=== PATIENT | male | born 1955 | race Caucasian/White ===

== ENCOUNTER 2019-07-13 11:16 | Inpatient (IN) ==
[2019-07-13] MEDS: NS 1,000 ML IV SCH (15:10)
[2019-07-13] MEDS: DILAUDID IV PRN ×2 (15:12→20:34)
--- NOTE | 2019-07-13 15:18 | Diag Imaging Result Doc PS360 ---
EXAM: CHEST-2 VIEWS HISTORY: SOB TECHNIQUE: Chest two views COMPARISON: None. FINDINGS: The lungs are well expanded. The heart is not enlarged. The vessels are not distended. There are no infiltrates. No pleural effusions. IMPRESSION: No acute abnormality. Electronically signed by Armand Riggins 07/13/2019 3:16 PM
--- NOTE | 2019-07-13 21:40 | Diag Imaging Result Doc PS360 ---
EXAM: CT THORAX W/WO CONTRAST HISTORY: History of renal mass, pulmonary nodule on CT A/P TECHNIQUE: Emergency CT chest with and without contrast COMPARISON: None. FINDINGS: No pleural effusions. Heart is enlarged. No enlarged lymph nodes. No thoracic aortic aneurysm or dissection. No pneumonia. No bronchiectasis. 6 mm nodule posteriorly in the right lower lobe. No other lung nodules identified. Scattered granuloma. IMPRESSION: Tiny solitary lung nodule This exam was performed using automated exposure control, adjustment of mA or kV according to patient size, and/or use of iterative reconstruction technique. Electronically signed by Armand Riggins 07/13/2019 9:38 PM
--- NOTE | 2019-07-13 22:22 | CONSULTATION ---
DATE OF CONSULTATION: 07/13/2019 CHIEF COMPLAINT: Right renal mass. HISTORY OF PRESENT ILLNESS: Mr. Waldron is a 63-year-old, with history of hypertension, hyperlipidemia, GERD who presents in consultation for a right renal mass. The patient has been having right lower extremity pain in his hip and lower leg. The patient has undergone prior MRI in Dr. Winters's office which was negative, and underwent a CT of abdomen and pelvis on Saturday when he was found to have gross hematuria. The patient has voided reddish urine several times on , but none since then. He denies any clot passage or difficulty emptying his bladder. A CT of the abdomen and pelvis was obtained which showed a large right renal mass, measuring 9 x 8 cm, involving the lower pole of the right kidney. The patient was admitted from home by Dr. Winters and Urology is consulted for further recommendations. The patient states he has seen Dr. Loo in the past. He denies any dysuria or hematuria today. Denies any urgency or frequency. Occasionally he has nocturia 1 time a night. The patient feels that he empties his bladder to completion. 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 He states he has a family history of kidney disease with his mother being diagnosed with kidney dysfunction due to chronic use of laxatives. The patient is a nonsmoker. Denies any exposures to chemicals. The patient denies any flank or abdominal pain. He states that he does have some pain in the right lower leg, most prominent when he bends his leg in flexion. 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 Denies any weight gain or weight loss. PAST SURGICAL HISTORY: Laparoscopic cholecystectomy. PAST MEDICAL HISTORY: 1. Hypertension. 2. Hyperlipidemia. 3. Gastroesophageal Reflux HOME MEDICATIONS: 1. Carvedilol. 2. Enalapril. 3. Esomeprazole. 4. Ezetimibe. 5. Lasix. 6. Losartan/hydrochlorothiazide. 7. Nifedipine XR. 8. Potassium chloride. ALLERGIES: None. FAMILY HISTORY: History of kidney dysfunction due to chronic laxative use by his mother. No family history of malignancy. SOCIAL HISTORY: Denies alcohol, tobacco, or illicit drug use. PHYSICAL EXAMINATION: Vital Signs: Temperature 98.0 degrees, heart rate 57, blood pressure 136/66, oxygen saturation 97% on room air. General: No acute distress. Resting in bed, alert and oriented x3. HEENT: Normocephalic, atraumatic. Pupils equal, round, and reactive to light. NECK: Trachea midline with no palpable masses or deformity. Cardiovascular: Regular rate and rhythm. No evidence of lower extremity edema. Respiratory: Good respiratory effort without audible wheezing or rales. Abdomen: Soft, nontender, and nondistended. No palpable masses or hepatosplenomegaly. : No suprapubic tenderness. No CVA tenderness. Normal phallus with orthotopic meatus. Bilateral testicles palpated without masses. No evidence of hydrocele or varicocele. Musculoskeletal: Some tenderness to palpation of the right hip and right lower leg. Neurologic: Gross motor and sensory intact. Moving all extremities. Skin: No obvious skin lesions or rashes. LABS: Creatinine 1.0, BUN 15. IMAGING: CT abdomen/pelvis from 07/10/2019: Images reviewed, which showed an 8.4 x 9.7 cm right lower pole mass that is very heterogeneic and enhances on CT scan. Irregular borders are present. 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 Bilateral renal cysts are visualized with several large cysts seen in each kidney. Right costophrenic nodule measuring 6 mm. ASSESSMENT AND PLAN: Mr. Waldron is a 63-year-old who presents in consultation regarding a right renal mass. The patient was admitted to the hospital after he was found to have blood in his urine several times at home over the past several days. He states his urine is clear now. CT abdomen/pelvis was performed on Saturday, which showed a large mass within the right kidney, measuring 8.4 x 9.7 cm in size. The patient's major complaint is regarding right lower extremity pain, most prominent within the hip and right calf. 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 I think this could be related to the tumor itself; however, I recommend obtaining a bone scan as well as a CT of the chest for staging. I talked extensively with the patient and his today regarding his new diagnosis of a renal mass, and the high probability that this is renal cell carcinoma. The patient is having some blood in his urine. Reviewing imaging, it is a very large mass that likely was not amenable to partial nephrectomy. The patient has a consult in place for Hematology Oncology discussion. I would recommend discussing with them regarding management with neoadjuvant PD1 medications as well as tyrosine kinase inhibitors. I think on his current CT scan there is no obvious metastatic lesion. Would obtain a bone scan and CT of the chest. If these are negative, would proceed with surgical resection of the right kidney. The patient's renal function seems to be relatively stable with creatinine of 1.0. We will obtain morning labs with a CBC and a CMP. We will continue to monitor from a urologic standpoint. Please call with questions or concerns. cc: MD Quincy Obregon MD MTDNayeli
[2019-07-14] MEDS: DILAUDID IV PRN ×5 (02:57→20:47)
[2019-07-14] MEDS: PRILOSEC PO SCH (06:20)
[2019-07-14] MEDS: NS 1,000 ML IV SCH ×3 (06:20→20:18)
[2019-07-14 07:01] LABS: HEMATOCRIT 41.4 % (42.0-52.0); HEMOGLOBIN 14.2 g/dL (14.0-18.0); MCH 30.5 PG (27-31); MCHC 34.3 g/dL (33-37); MCV 88.8 FL (81-99); MPV 9.5 FL (7.4-10.4); RBC 4.66 XMIL (4.7-6.1); RDW 13.5 % (11.5-14.5); WBC 6.82 X1000 (4.8-10.8)
--- NOTE | 2019-07-14 07:15 | HISTORY AND PHYSICAL ---
CHIEF COMPLAINT: Intractable dull pain on the right side, going to the leg for the last couple of months. HISTORY OF PRESENT ILLNESS: He is a 63-year-old, pleasant, white male, who basically was evaluated in my office last time 4 weeks ago with the above pain. Plain x-rays were negative. Outpatient MRI open did not show any lesions, other than arthritic changes. In the meantime, he started having hematuria, seen in my office on Saturday. Ultrasound shows a large lower pole mass, which is corroborated by CT on Saturday. The patient was not able to ambulate, in a lot of pain, admitted to the hospital for pain control and further workup. Dr. Loo has been consulted. PAST MEDICAL HISTORY: Metabolic syndrome, acid reflux disease, hyperlipidemia, hypertension, hyperuricemia, slightly elevated PSA of 4.7. PAST SURGICAL HISTORY: Cholecystectomy. MEDICINES: In my office: Coreg 25 p.o. b.i.d., Flexeril 10 mg once daily, Lasix 40 mg daily, potassium 20 mEq daily, Hyzaar 50/12.5 daily, Nexium 40 mg daily, Procardia XL 30 mg daily, Vasotec 20 mg b.i.d., Zetia 10 daily, sulindac as needed. ALLERGIES: Not known. 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 No alcohol. No drug abuse. FAMILY HISTORY: Father at the age of 76 from PSP. Mom of kidney failure at 76. HEALTH MAINTENANCE: Last physical in 05/2019. Colonoscopy by Dr. Cagle. REVIEW OF SYSTEMS: HEENT: No headache. No vision problem. No earache. No sore throat. Neck: No goiter. No lymphadenopathy. No bruit. Cardiopulmonary: No chest pain, shortness of breath, PND, orthopnea. GI: No nausea, vomiting, abdominal pain, bleeding per rectum. : No BPH symptoms, other than hematuria starting on Saturday. Extremities: No swelling of legs. Right sciatica pain. No weakness. Neurologic: No focal symptoms or weakness. PHYSICAL EXAMINATION: VITAL SIGNS: Temperature is 98 degrees, pulse is 57, blood pressure is stable, saturating 97% on room air. HEENT: Atraumatic, normocephalic. Pupils equal, reactive to light. TMs are normal. Nose and throat are within normal limits. NECK: Supple. No lymphadenopathy. No goiter. CHEST: Bilateral air entry. HEART: Heart sounds are regular. ABDOMEN: Belly is soft, nontender. Good bowel sounds. NEUROLOGIC: Straight leg raise test is negative. No obvious deficits. INVESTIGATIONS: In my office, SMA-7: Creatinine is 1.2, potassium 3.3. CBC: White cell count 4.3, hematocrit 45, platelets 194,000. Uric acid 9.5. Urinalysis shows 3+ blood. Hemoglobin A1c 5.5. Liver function tests are normal. Lipid profile: Cholesterol 119, LDL 60. PSA 4.7. Thyroid function tests were normal. B12 of 416. Chest x-ray: No acute abnormality. CT scan of the abdomen and pelvis: Large suspicious mass in the right kidney lower pole, and a tiny 6 mm nodule on the right CP angle. Bilateral renal cysts. ASSESSMENT AND PLAN: A 63-year-old white gentleman with: 1. Hematuria due to large mass in the lower pole of the right kidney, unable to control the pain. Plan is intravenous Dilaudid, intravenous fluids. Urology consult with Dr. Loo, as well as Dr. De La Torre, and Dr. Rasmussen has seen the patient, ordered a bone scan and CT of the chest. 2. Hypertension. Multiple medication by Dr. Wisdom in [place]. Will hold the medicines for the time being. 3. Slightly elevated PSA at 4.7. 4. Will also get the MRI of the lumbar spine from the open MRI. Will review the reports, and will coordinate the care with consultants, and plan for nephrectomy, and continue on Nexium for gastrointestinal prophylaxis, Antithrombotic prophylaxis with thrombotic stockings and early ambulation, and will follow up. cc: Quincy Winters MD
[2019-07-14 07:28] LABS: AGAP 10; ALB/GLOB RATIO 1.5; ALBUMIN 3.9 g/dL (3.5-5.0); ALKALINE PHOSPHATASE 76 U/L (32-122); BUN 12 mg/dL (8-22); CALCIUM 8.6 mg/dL (8.8-10.2); CHLORIDE 105 mmol/L (98-107); COSMO 283; CREATININE 0.9 mg/dL (0.7-1.2); ESTIMATED GFR > 60; GLUCOSE 104 mg/dL (70-104); GOT 22 U/L (10-34); GPT 26 U/L (10-44); POTASSIUM 3.4 mmol/L (3.5-5.1); SODIUM 142 mmol/L (136-145); TCO2 27 mmol/L (25-35); TOTAL BILIRUBIN 1.51 mg/dL (0.20-1.00); TOTAL PROTEIN 6.5 g/dL (6.3-8.3)
--- NOTE | 2019-07-14 12:59 | Diag Imaging Result Doc PS360 ---
BONE SCAN, TOTAL BODY - 07/13/2019 INDICATION: History of right lower extremity and bony pain TECHNIQUE: 29.1 mCi of MDP was administered COMPARISON: None FINDINGS: There is normal localization of the radiotracer. No abnormal skeletal or soft tissue uptake. IMPRESSION: Negative exam. Electronically signed by Ulices Chavez 07/14/2019 12:57 PM
[2019-07-14] MEDS: COREG PO SCH (20:20)
[2019-07-14] MEDS: ADALAT CC PO SCH (20:20)
--- NOTE | 2019-07-14 21:10 | PROGRESS NOTE ---
DATE: 07/14/2019 SUBJECTIVE: The patient's pain is coming back. Continues to have Dilaudid, and asked the patient to ambulate. Workup is in progress. Appreciate Urology consult. REVIEW OF SYSTEMS: Intractable back pain. Family brought the MRI of lumbar spine. We will review with the radiologist. OBJECTIVE: On examination, temperature is 98 degrees. Vital signs are stable. HEENT exam within normal limits. Neck is supple. Chest is clear. Heart sounds are regular. Belly is soft, nontender. DIAGNOSTIC DATA: Bone scan is negative. Chest CT: A 6 mm nodule. ASSESSMENT AND PLAN: 1. Large right renal mass. Waiting for nephrectomy. 2. Staging is done. So far no evidence of metastatic disease PET scan is not helpful as per Dr. De La Torre. 3. We will review the MRI of lumbar spine, which is negative for metastatic disease. 4. Hypertension. Slowly restart on Coreg and nifedipine. 5. Hematuria has stopped. 6. Appreciated Urology and Dr. De La Torre consult. We will follow up. Waiting for nephrectomy based on the Urology schedule. Continue intravenous Dilaudid for pain control. Follow up. cc: Quincy Winters MD MTDD
[2019-07-15] MEDS: DILAUDID IV PRN ×8 (01:09→23:39)
[2019-07-15] MEDS: PRILOSEC PO SCH (06:03)
[2019-07-15] MEDS: NS 1,000 ML IV SCH ×2 (07:22→19:46)
[2019-07-15] MEDS: ADALAT CC PO SCH (09:03)
[2019-07-15] MEDS: COREG PO SCH ×3 (09:03→23:03)
--- NOTE | 2019-07-15 12:45 | HEMO/ONC CONSULTATION ---
DATE: 07/15/2019 REASON FOR CONSULTATION: Large right kidney mass. HISTORY OF PRESENT ILLNESS: This is a 63-year-old, male who has been recently having a significant amount of pain to his right buttock/sciatic area that is radiating to his right leg. He got to the point where he was not able to ambulate and in a lot of pain. Dr. Winters performed x- rays and MRI, which were negative. The patient began having hematuria. An ultrasound was ordered which showed a large lower pole right kidney mass. A CT of his abdomen and pelvis showed an 8.4 x 9.7 cm mass at the lower pole of the right kidney. It is suspected that the mass is probably affecting his psoas muscle which is causing significant pain to the right lower side of his buttock. A bone scan was performed which was negative for metastasis. PAST MEDICAL HISTORY: Metabolic syndrome, acid reflux disease, hyperlipidemia, hypertension, hyperuricemia, slightly elevated PSA of 4.7. PAST SURGICAL HISTORY: Cholecystectomy. HOME MEDICATIONS: Coreg, Flexeril, Lasix, potassium, Hyzaar, Nexium, Procardia XL, Vasotec, Zetia, and Sulindac. ALLERGIES: No known allergies. SOCIAL HISTORY: The patient denies smoking, alcohol, or illicit drug use. REVIEW OF SYSTEMS: The patient complains of right sciatic pain and hematuria. Review of systems is otherwise negative. VITAL SIGNS: Temperature 98.9 degrees, pulse rate 57, respiratory rate 14, blood pressure 137/62, O2 saturation 96% on room air. He is in 8/10 right hip and thigh pain. PHYSICAL EXAMINATION: General: This is an obese male in no acute distress. He has a BMI of 37. HEENT: Sclerae are anicteric. PERRLA. Oral mucosa is normal. Cardiovascular: Normal S1, S2. Heart rate and rhythm regular. Respiratory: Lung sounds are clear to auscultation. Normal respiratory effort. Abdomen: Protuberant, soft, and nontender. Neurological: No focal motor deficits noted. Alert, awake, alert, and oriented x3. Able to move all extremities at will. LABORATORY: No labs were drawn today. Significant values from yesterday's lab work include total bilirubin at 1.51. RADIOLOGY: Chest x-ray was negative. Chest CT shows a tiny solitary lung nodule in the right lower lobe. A bone scan was negative. ASSESSMENT AND PLAN: 1. Large right kidney mass. The patient is stable at this time except for pain. We will await a nephrectomy per urology, according to their schedule. We will follow up with the patient in the office for further management. 2. Small lung nodule: Too small to be picked up by PET. Will need to monitor with future scans. Dictated by CARMELINA Ray for Conrado De La Torre MD cc: MD Quincy Berkowitz MD MTDD
--- NOTE | 2019-07-15 19:30 | PROGRESS NOTE ---
DATE: 07/15/2019 SUBJECTIVE: No acute events overnight. The patient has undergone prior CT chest and bone scan, which were both negative for metastatic lesions. The patient had a small pulmonary nodule on the right side, measuring 6 mm. The patient has been seen by Hematology/Oncology. The patient continues to have some lower extremity pain, most prominent within the right lower extremity. He states it has been well controlled with his medications. OBJECTIVE: Vital Signs: Temperature 98.6, heart rate 60, blood pressure 122/61, oxygen saturation 95% on room air. General: No acute distress. Resting comfortably in bed. Alert and oriented x3. Respiratory: Good respiratory effort without audible wheezing or rales. Abdomen: Soft, nontender, and nondistended. No palpable masses or hepatosplenomegaly. : No suprapubic tenderness. No CVA tenderness. Musculoskeletal: The patient has some tenderness to palpation of the right lower extremity with no obvious deformities. LABS: 07/14/2019: White blood cell count 6.8, hemoglobin 14.2, hematocrit 41.4, platelets 194,000. Sodium 142, potassium 3.4, chloride 105, bicarb 27, BUN 12, creatinine 0.9, glucose 104, calcium 8.6, bilirubin 1.5. IMAGIN. Bone scan showed no evidence of metastatic lesions. 2. Chest CT scan showed a small right pulmonary nodule in the posterior right lower lobe. No other lesions were seen. ASSESSMENT AND PLAN: Mr. Waldron is a 62-year-old who presented in consult regarding a right renal mass. The patient continues to have some right lower extremity pain which seems to be relatively well controlled on oral pain medication. The patient denies any hematuria since admission. The patient has undergone bone scan and CT scan of the chest, which were both normal with a small solitary nodule on the right lower lobe. The patient currently is scheduled to have a robotic radical nephrectomy by Dr. Loo on Saturday of next week. Would recommend medical optimization in preparation for surgery. The patient seems to have good pain control at this time. It may be beneficial for him to go home and recuperate prior to his surgery next week. Discussed this with the patient this morning. Will continue to monitor from a urologic standpoint. Please call with questions or concerns. cc: MD Quincy Obregon MD MTDD
[2019-07-15] MEDS: ULTRACET 37.5MG/325MG PO PRN (19:43)
--- NOTE | 2019-07-15 21:32 | PROGRESS NOTE ---
DATE: 07/15/2019 SUBJECTIVE: The patient is in a lot of pain, not able to control on IV Dilaudid, and appreciated Dr. Loo' and Dr. Rasmussen's input, as well as Dr. De La Torre. No hematuria other than pain. PHYSICAL EXAMINATION: Vital Signs: Temperature is 98.3, pulse 60, blood pressure 140/67, 98% on room air. HEENT: Within normal limits. Neck: Supple. No lymphadenopathy. Chest: Bilateral air entry. Heart: Sounds are regular. Abdomen: Belly is soft, nontender. Neurologic: No obvious deficits. INVESTIGATIONS: 1. Intractable right-sided back pain, sciatica. Neurological exam is stable. We will start on Ultracet 1 tablet every 6 hours. Continue Dilaudid. 2. Out of the bed. 3. No hematuria, and waiting for robotically assisted radical nephrectomy on Saturday. 4. Will review the MRA of lumbar spine. So far, no evidence of metastatic disease, and the pain is controlled. Will discharge on oral pain medicines. Will readmit either on Saturday afternoon or Saturday for upcoming robotic assisted nephrectomy. 5. I appreciated consultants. Will coordinate the care. LEVEL OF DOCUMENTATION: 25 minutes. cc: Quincy Winters MD
[2019-07-16] MEDS: DILAUDID IV PRN (01:41)
[2019-07-16] MEDS: ULTRACET 37.5MG/325MG PO PRN (01:41)
[2019-07-16] MEDS: ADALAT CC PO SCH (08:34)
[2019-07-16] MEDS: NS 1,000 ML IV SCH (08:34)
[2019-07-16] MEDS: PRILOSEC PO SCH (08:35)
[2019-07-16] MEDS: COREG PO SCH (08:35)
[2019-07-16 08:41] VITALS: BP 142/70
--- NOTE | 2019-07-17 06:25 | DISCHARGE SUMMARY ---
ADMISSION DATE: 07/13/2019 DISCHARGE DATE: 07/16/2019 DISCHARGING DIAGNOSIS: Intermittent hematuria, back pain due to a large renal cell mass on the right side. SECONDARY DIAGNOSES: 1. Metabolic syndrome. 2. Acid reflux disease. 3. Hyperlipidemia. 4. Hypertension. 5. Hyperuricemia. 6. Benign prostatic hypertrophy with elevated PSA 4.7. 7. Right sciatica pain due to L4-L5 disk disease with neuroforaminal stenosis. CONSULTS: 1. Dr. Guzman Loo. 2. Dr. De La Torre. BRIEF HISTORY: Please see the H and P that was done on 07/13/2019. In brief, he is a 63-year-old white male who has been suffering from chronic back pain for the last 6 weeks, going to the right leg, not able to control worsening and further workup revealed of the hematuria, patient was found to have a large 8 cm mass in the lower pole of the right kidney in medical-surgical clinic. He has intermittent hematuria and a lot of back pain. As a result, admitted to the hospital. HOSPITAL COURSE: Patient was found to have a large suspicious renal cell neoplasm, 8 cm. He had outpatient MRI done. It showed no metastatic disease except L4-L5 disk disease with central canal stenosis. He was given IV fluids and IV Dilaudid for pain control. Further workup, bone scan was negative, CT of the chest showed 6 mm nodule in the right lower lobe. He also had a few bouts of bleeding in the urine, that was stopped. Appropriate consult was obtained. It has been unanimously recommended to do the right nephrectomy. Obviously, because of the conflicts of the scheduling, he was scheduled right nephrectomy on coming Saturday by Dr. Loo. LABS: White cell count 6.8, hematocrit 42, platelets 194,000. SMA-7, potassium 3.4. LFTs were normal. DISCHARGE INSTRUCTIONS: The patient was discharged home with the following instructions: Coreg 25 p.o. b.i.d., Nexium 40 daily, Zetia 10 daily, nifedipine 30 daily, potassium 20 mEq daily, losartan hydrochlorothiazide 50/12.5 daily, Ultracet 1 tablet q.6 p.r.n. pain. If it does not control, will use the [place] as needed and will admit on Saturday morning or Saturday evening for radical nephrectomy. cc: MD Conrado Foss MD William E. Hughes, MD
== END 2019-07-16 09:39 | disposition home or self-care (01) | DRG 700 ==
LOC: DIRADM 11:16 → 3N 13:47
PROVIDERS: ADMIT Internal Medicine; ATTEND Internal Medicine

== ENCOUNTER 2019-07-21 15:30 | Inpatient (IN) ==
--- NOTE | 2019-07-21 18:49 | CONSULTATION ---
DATE OF CONSULTATION: 07/21/2019 ATTENDING AND REFERRING PHYSICIAN: Dr. Winters. HISTORY OF PRESENT ILLNESS: This 63-year-old male was having abdominal pain. A CT scan revealed an 8 to 9 cm mass in the right kidney that meets CT criteria for malignancy. He was admitted by his family physician in preparation for laparoscopic robot-assisted right radical nephrectomy. The patient denies any voiding problems. PAST MEDICAL HISTORY: 1. Hypertension. 2. Elevated cholesterol. 3. Gastroesophageal reflux disease. CURRENT MEDICATIONS: Documented on the chart. PAST SURGICAL HISTORY: Cholecystectomy. SOCIAL HISTORY: No tobacco or alcohol use. ALLERGIES: No known drug allergies. REVIEW OF SYSTEMS: He denies any problems with heart disease, diabetes, strokes, seizures, pulmonary, or bowel problems. He has had no hematuria. PHYSICAL EXAMINATION: General: An obese, age apparent, normally developed, white male, oriented in all ways and cooperative. HEENT: Normal for age. Lungs: Clear. Cardiovascular: Regular rate and rhythm. Abdomen: Obese, soft, nontender. No hepatosplenomegaly or masses. Normal bowel sounds. : Normal male. Both testes are down. Scrotal exam is normal. Rectal: Deferred. Extremities: No C, C or E. Neurologic: No focal deficits. LABORATORY EVALUATION: He has a BUN 15, creatinine 1.0. A CT scan is as noted in the HPI. The scan reveals the 8.4 x 9.7 right renal mass. Incidentally noted were bilateral fat containing lesions in the adrenal gland that are myelolipomas. Also noted were renal cysts. IMPRESSION: Large right renal mass. PLAN: Laparoscopic robot-assisted right radical nephrectomy. The planned procedure, benefits versus risks, and possible complications, including, but not limited to, bleeding, infection, not being able to remove all of the cancer, and need for further surgery or treatment was discussed. They seemed to understand and desired to proceed. cc: MD Quincy Philippe MD
[2019-07-21] MEDS ORDERED: ULTRACET 37.5MG/325MG PO PRN (19:10)
[2019-07-21] MEDS ORDERED: NS 1,000 ML IV SCH (19:15)
[2019-07-21] MEDS: NS 1,000 ML IV SCH (20:53)
[2019-07-21] MEDS: COREG PO SCH (20:53)
--- NOTE | 2019-07-21 21:12 | HISTORY AND PHYSICAL ---
CHIEF COMPLAINT: Large right renal mass scheduled for radical nephrectomy in the morning. HISTORY OF PRESENT ILLNESS: He is a 63-year-old pleasant white male who recently had hematuria. 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 He was seen before by Dr. De La Torre and scheduled for right radical nephrectomy tomorrow. PAST MEDICAL HISTORY: Metabolic syndrome, acid reflux disease, hyperlipidemia, hypertension, hyperuricemia, elevated PSA with BPH, PSA of 4.7. Chronic back pain with L4 to L5 disk disease with neuroforaminal stenosis. PAST SURGICAL HISTORY: Cholecystectomy. MEDICATIONS: Coreg 25 p.o. b.i.d. Lasix 40 daily. Ultracet 1 tablet q.6 as needed. Potassium 20 mEq daily. Nifedipine 30 daily. Zetia 10 daily. Nexium 40 daily. ALLERGIES: Not known. 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 No alcohol. No drug abuse. FAMILY HISTORY: Father at 76 from PSP disease. Mom of chronic kidney disease at 76. REVIEW OF SYSTEMS: HEENT: No headache. No vision problem. No earache. No sore throat. Neck: No goiter. No lymphadenopathy. No bruit. Cardiopulmonary: No chest pain, shortness of breath, PND, orthopnea. GI: No nausea, vomiting, abdominal pain. : No history of hematuria, dysuria, hesitancy, frequency. No obstructive symptoms. Musculoskeletal: Back pain better than before, and no weakness in the legs. PHYSICAL EXAMINATION: VITAL SIGNS: Temperature is 97 degrees, pulse 58, blood pressure is stable 5 feet 9, 247 pounds. HEENT: Within normal limits. NECK: Supple. No lymphadenopathy. No goiter. CHEST: Bilateral air entry. HEART: Sounds are regular. No murmur. ABDOMEN: Belly is soft, obese, nontender. Good bowel sounds. NEUROLOGIC: No neurological deficits. INVESTIGATIONS: Pending. ASSESSMENT AND PLAN: 1. A 63-year-old white gentleman admitted to the hospital. Large right renal mass suspicious with hypernephroma. Scheduled for radical nephrectomy by Dr. Loo in the morning and pain control. 2. Continue IV fluids. Follow up on the labs. 3. Reconcile home medicines with Coreg, nifedipine for blood pressure as well as potassium. 4. Pain control with tramadol. 5. Deep venous thrombosis with antithrombotic stockings. 6. Dr. Loo consultation and will follow up . cc: Quincy Winters MD MTDD
--- NOTE | 2019-07-21 21:17 | EKG Report ---
Test Performed on : 07/21/2019 8:43:48 PM Test Reason : chest pain Blood Pressure : / mmHG Vent. Rate : 059 BPM Atrial Rate : 059 BPM P-R Int : 202 ms QRS Dur : 100 ms QT Int : 440 ms P-R-T Axes : 028 005 005 degrees QTc Int : 435 ms Sinus bradycardia. Nonspecific T wave abnormality Abnormal ECG No previous ECGs available Confirmed by Jamison Viera MD ([id number]) on 07/21/2019 11:10:10 PM
[2019-07-21 21:19] LABS: BASO# 0.03 X1000 (0.0-0.2); BASO% 0.4 % (0.0-0.8); EOS# 0.28 X1000 (0.0-0.7); HEMATOCRIT 40.1 % (42.0-52.0); HEMOGLOBIN 13.5 g/dL (14.0-18.0); IMM GRAN# 0.02 X1000 (0.0-0.04); IMM GRAN% 0.3 % (0.0-0.5); LYMPH# 1.63 X1000 (1.2-3.4); LYMPH% 23.1 % (20.5-51.1); MCH 29.9 PG (27-31); MCHC 33.7 g/dL (33-37); MCV 88.7 FL (81-99); MONO# 0.76 X1000 (0.11-0.59); MONO% 10.8 % (1.7-9.3); MPV 9.9 FL (7.4-10.4); NEUT# 4.34 X1000 (1.4-6.5); NEUT% 61.4 % (42.2-75.2); PLT 223 X1000 (130-400); RBC 4.52 XMIL (4.7-6.1); RDW 13.5 % (11.5-14.5); WBC 7.06 X1000 (4.8-10.8)
[2019-07-21 21:24] LABS: INR 1.05; PROTIME 13.9 Seconds (11.0-16.0)
[2019-07-21 21:36] LABS: AGAP 12; BUN 11 mg/dL (8-22); CALCIUM 8.2 mg/dL (8.8-10.2); CHLORIDE 104 mmol/L (98-107); COSMO 280; CREATININE 0.8 mg/dL (0.7-1.2); ESTIMATED GFR > 60; GLUCOSE 123 mg/dL (70-104); POTASSIUM 3.2 mmol/L (3.5-5.1); SODIUM 140 mmol/L (136-145); TCO2 24 mmol/L (25-35)
[2019-07-22] MEDS: NEXIUM PO SCH (06:59)
[2019-07-22] MEDS ORDERED: DIPRIVAN 1% ONE (08:14)
[2019-07-22] MEDS ORDERED: QUELICIN (DOSE) ONE ×2 (08:16→10:17)
[2019-07-22] MEDS ORDERED: FENTANYL ONE (08:17)
[2019-07-22] MEDS ORDERED: LR 1,000 ML ONE (08:45)
[2019-07-22] MEDS ORDERED: SENSORCAINE 0.5%-EPI 1:200,000 ONE (08:45)
[2019-07-22] MEDS ORDERED: ADALAT CC PO SCH (09:00)
[2019-07-22] MEDS ORDERED: NEOSTIGMINE ONE ×2 (09:01→13:31)
[2019-07-22] MEDS ORDERED: KEFZOL 2 GM/D5W 2 GM/50 ML IVPB ONE (09:23)
[2019-07-22] MEDS ORDERED: ATROPINE ONE (10:17)
[2019-07-22 11:22] LABS: URINE SOURCE CATH
[2019-07-22 11:27] LABS: BILIRUBIN URINE NEGATIVE (NEGATIVE); BLOOD URINE SMALL (NEGATIVE); COLOR YELLOW; GLUCOSE URINE NEGATIVE (NEGATIVE); KETONE URINE NEGATIVE (NEGATIVE); LEUKOCYTES URINE NEGATIVE (NEGATIVE); NITRITE URINE NEGATIVE (NEGATIVE); PROTEIN URINE NEGATIVE (NEGATIVE); SP GRAVITY URINE 1.011; TURBIDITY URINE CLEAR (CLEAR); UR EPITHELIAL CELLS <10 /HPF (<10); URINE BACTERIA NEGATIVE /HPF; URINE RBC <10 /HPF (<10); URINE WBC <10 /HPF (<10); UROBILINOGEN URINE NORMAL (NORMAL)
[2019-07-22] MEDS ORDERED: ZOFRAN ONE (13:40)
[2019-07-22] MEDS ORDERED: ROBINUL ONE (13:40)
[2019-07-22] MEDS ORDERED: DECADRON ONE (13:42)
[2019-07-22] MEDS ORDERED: BRIDION ONE ×2 (14:45→14:47)
[2019-07-22] MEDS: COREG PO SCH ×2 (16:11→20:35)
[2019-07-22] MEDS: ADALAT CC PO SCH (16:24)
[2019-07-22] MEDS: POTASSIUM CHLORIDE 20 MEQ/SWI 20 MEQ/100 ML IVPB IV SCH ×2 (16:24→20:27)
[2019-07-22] MEDS: KLOR-CON PO SCH (16:25)
[2019-07-22] MEDS: NS 1,000 ML IV SCH (17:17)
[2019-07-22] MEDS: MORPHINE IV PRN ×3 (17:17→22:47)
[2019-07-22] MEDS: OFIRMEV 1000 MG/ISOTONIC SOLN 1,000 MG/100 ML BOTTLE IV SCH ×2 (18:29→22:38)
[2019-07-22] MEDS: KEFZOL 2 GM/D5W 2 GM/50 ML IVPB IV SCH (18:54)
[2019-07-22] MEDS: OXY IR PO PRN (20:34)
[2019-07-22] MEDS: PERIDEX MT SCH (20:37)
--- NOTE | 2019-07-22 21:50 | PROGRESS NOTE ---
DATE: 07/22/2019 SUBJECTIVE: The patient is going for right nephrectomy by Dr. Loo. No complaints. Pain is adequately controlled. No hematuria. No chest pain. OBJECTIVE: On examination, vitals are stable. HEENT exam within normal limits. Chest is clear. Heart sounds are regular. No neurological deficits. LABORATORY DATA: Potassium 3.2. ASSESSMENT AND PLAN: 1. Hypokalemia. Replace the potassium. 2. Hematuria due to large right renal mass. Waiting for right nephrectomy. 3. We will follow up postoperatively after right nephrectomy. Continue the present treatment. Discussed the plan of care with the family. LEVEL OF DOCUMENTATION: 25 minutes. cc: Quincy Winters MD
--- NOTE | 2019-07-23 00:13 | OPERATIVE NOTE ---
PROCEDURE DATE: 07/22/2019 SURGEON: Guzman Loo MD PREOPERATIVE DIAGNOSES: 1. Large right renal mass. 2. A 4 cm right adrenal myelolipoma. POSTOPERATIVE DIAGNOSES: 1. Large right renal mass. 2. A 4 cm right adrenal myelolipoma. PROCEDURE PERFORMED: 1. Laparoscopic robot-assisted right radical nephrectomy. 2. Adrenalectomy with removal of the large myelolipoma. ANESTHESIA: General endotracheal. FINDINGS: A large right renal mass and at least a 4 cm right adrenal myelolipoma that was underneath the liver. INDICATION FOR PROCEDURE: This 63-year-old male was having abdominal pain. Evaluation with CT scan revealed the large right renal mass, a 4 cm right adrenal myelolipoma and a 2 cm left adrenal myelolipoma. DESCRIPTION OF PROCEDURE: After informed consent was obtained from the patient and him receiving IV antibiotics, he was taken to the main OR, placed in the supine position. General endotracheal anesthesia was achieved. He was then placed with his right side elevated to about 30 degrees. The table was flexed a small amount and he was firmly fixed to the table. When the table was rotated completely to his right, he was in an almost horizontal position. When he was rotated to the left, he achieved flank position. The table was left in the nearly horizontal position. A 16- Beninese Cruz catheter was passed through the patient's urethra, prostate and then the bladder without difficulty. The Cruz was placed to gravity drain. The patient was then prepped and draped in the usual sterile fashion for right flank and abdominal surgery. Pneumoperitoneum was achieved by placing a Veress needle through the umbilicus and the abdomen was inflated to 15 cm of water pressure with CO2. The Veress needle was removed and a horizontal incision was made approximately 10 cm above the umbilicus over to the right because of his obesity. The Visiport was used to place the 12 mm trocar. A camera was then placed through this and robot trocars were placed at the midclavicular line just below the ribcage. That was for the #1 arm. The #2 arm was placed at about the level of the umbilicus in the midclavicular line. The fourth arm was placed just above the right anterior superior iliac spine. The clerical dentist assistant port was placed lateral to the midline just above the umbilicus. After the trocars were placed, the patient was rotated such that his right side was in flank position. The robot was docked. The procedure was started by taking down some adhesions and then the ascending colon was mobilized medially by incising the white line of Toldt. There was significant inflammatory reaction from the large lower pole renal tumor, but the colon was sharply dissected medially. The patient had a previous cholecystectomy and there was inflammation in this area. A 5 mm trocar was placed close to the xiphoid process and a locking grasper was placed through this to act as a liver retractor. The colon was mobilized medially, and again there was significant inflammatory reaction, but the duodenum was visualized and it was able to be reflected medially as well. This exposed the vena cava. There was significant adipose tissue over all important body parts. After the vena cava was visualized, it was dissected down to where the gonadal vein entered the vena cava. The gonadal vein was then dissected on its lateral side to just below the lower pole of the kidney and mass. The psoas muscle was then exposed by dissecting through the large amount of adipose tissue. The ureter was visualized and the fourth arm was used to raise the ureter and lower pole of the kidney off the psoas muscle. This area was then dissected back to the renal vein and the fourth arm was used to keep the kidney on stretch. The renal vein was dissected free of its bed bluntly and encircled with a vessel loop. The renal vein was then retracted cephalad and the renal artery was finally exposed and encircled with a vessel loop. Because the renal artery was directly below the renal vein, a Hem-o-mao clip was placed very proximally on the renal artery. A second one was placed above the first one. The PALLAVI vascular stapler, 2.2 mm autumn, was used to take the renal vein and then a similar vascular load was used to take the renal artery. The kidney was then bluntly and sharply dissected free of its bed, keeping Gerota fascia intact. While dissecting over the upper pole, the large right adrenal myelolipoma was visualized. The plane between the adrenal vein and upper pole kidney was developed and the kidney was completely freed of its bed. The ureter was taken down with a clip and the PK dissector. The kidney was moved out of the way. The adrenal gland with the large myelolipoma was bluntly and sharply dissected free of its bed. This myelolipoma dissected up underneath the liver and it took approximately 1 hour to dissect this completely free. The adrenal vein coming off the posterolateral side of the vena cava was taken down with clips. The right adrenal with the large myelolipoma was placed in an EndoCatch retrieval bag to be brought out of the clerical dentist assistant port. A locking grasper was passed through the clerical dentist assistant port and grasped the renal pelvis. The kidney bed was irrigated and then Surgicel SNoW was placed over the renal pedicle and the bed of the adrenal gland. The robot was undocked and the table was rotated such that the patient was almost supine. The robot trocars were removed. The clerical dentist assistant incision was brought up cephalad with the cutting current of the electrocautery. The abdominal rectus fascia was exposed. The surgeon's finger was passed through the clerical dentist assistant port incision and the abdominal rectus fascia was incised. The Endo Catch retrieval bag was easily removed. The incision was extended such that the surgeon could place his hand in the incision and the grasping forceps was followed down to the renal pelvis, and the kidney was removed. All specimens were passed off the field to Pathology. The abdominal rectus fascia was reapproximated with a running suture of #1 Maxon. The camera port incision fascia was reapproximated with a [id number] suture of 2-0 Vicryl, placed using a UR- 6 needle. The skin incisions were reapproximated with clips. The subcutaneous tissue was placed along the large incision. The skin was also reapproximated with clips. Island dressings were placed. He tolerated the procedure well. He was taken to the recovery room, extubated in good condition. ESTIMATED BLOOD LOSS: 450 mL cc: MD Quincy Philippe MD
[2019-07-23] MEDS: OXY IR PO PRN ×5 (02:01→23:03)
[2019-07-23] MEDS: KEFZOL 2 GM/D5W 2 GM/50 ML IVPB IV SCH ×2 (03:34→10:03)
[2019-07-23] MEDS: MORPHINE IV PRN ×4 (03:34→21:27)
[2019-07-23] MEDS: NS 1,000 ML IV SCH (03:48)
[2019-07-23] MEDS: OFIRMEV 1000 MG/ISOTONIC SOLN 1,000 MG/100 ML BOTTLE IV SCH ×2 (05:15→11:52)
[2019-07-23] MEDS: NEXIUM PO SCH (06:06)
[2019-07-23 06:43] LABS: HEMATOCRIT 37.3 % (42.0-52.0); HEMOGLOBIN 12.7 g/dL (14.0-18.0); MCH 30.8 PG (27-31); MCV 90.3 FL (81-99); RBC 4.13 XMIL (4.7-6.1); RDW 13.7 % (11.5-14.5); WBC 10.14 X1000 (4.8-10.8)
[2019-07-23 07:14] LABS: AGAP 9; BUN 8 mg/dL (8-22); CALCIUM 7.6 mg/dL (8.8-10.2); CHLORIDE 105 mmol/L (98-107); COSMO 275; CREATININE 1.2 mg/dL (0.7-1.2); ESTIMATED GFR > 60; GLUCOSE 117 mg/dL (70-104); SODIUM 138 mmol/L (136-145); TCO2 24 mmol/L (25-35)
[2019-07-23] MEDS: COREG PO SCH ×2 (10:02→20:33)
[2019-07-23] MEDS: KLOR-CON PO SCH (10:02)
[2019-07-23] MEDS: ADALAT CC PO SCH (10:02)
[2019-07-23] MEDS: PERIDEX MT SCH ×2 (10:04→20:33)
--- NOTE | 2019-07-23 20:37 | PROGRESS NOTE ---
DATE: 07/23/2019 SUBJECTIVE: The patient is doing better, postoperative day 1, right nephrectomy. REVIEW OF SYSTEMS: None reported, other than slight pain. PHYSICAL EXAMINATION: Temperature is 98 degrees. Vitals are stable.HEENT: Within normal limits. Neck: Supple. Chest: Clear. Heart sounds are regular. Belly is soft, nontender. INVESTIGATIONS: CBC: White cell count 10, hematocrit 37, platelet 195,000. Sodium 138, potassium 4.0, BUN 8, creatinine 1.2, glucose 117. Urinalysis is clear. ASSESSMENT AND PLAN: 1. Postoperative day 1, right nephrectomy. Doing very well. Discontinue Cruz. 2. Currently on intravenous fluids. Slowly advance the diet as tolerated. 3. Deep vein thrombosis prophylaxis with stockings. Out of the bed today. Continue Nexium. Blood pressure is doing very well with nifedipine and Coreg, and continue to monitor. LEVEL OF DOCUMENTATION: 25 minutes. cc: Quincy Winters MD
[2019-07-24] MEDS: MORPHINE IV PRN (00:52)
[2019-07-24] MEDS: NEXIUM PO SCH (06:30)
[2019-07-24] MEDS: NS 1,000 ML IV SCH ×2 (06:55→15:45)
--- NOTE | 2019-07-24 09:03 | Diag Imaging Result Doc PS360 ---
EXAM: KUB ABDOMEN 07/24/2019 HISTORY: constipation TECHNIQUE: KUB COMMENT: There are multiple skin clips to the right of the midline in the lower mid abdomen. There are also surgical clips in the right upper quadrant. There is gas throughout much of the transverse colon with stool in the ascending colon and rectum. Stomach and small bowel are not distended. There is no evidence of organomegaly or mass. IMPRESSION: Mild constipation/colonic ileus. Electronically signed by Twin Rodriguez 07/24/2019 9:01 AM
[2019-07-24] MEDS: OXY IR PO PRN ×4 (09:25→22:54)
[2019-07-24] MEDS: ADALAT CC PO SCH (09:26)
[2019-07-24] MEDS: KLOR-CON PO SCH (09:26)
[2019-07-24] MEDS: PERIDEX MT SCH ×2 (09:27→22:53)
[2019-07-24] MEDS: COREG PO SCH ×2 (09:27→22:53)
--- NOTE | 2019-07-24 19:48 | PROGRESS NOTE ---
DATE: 07/24/2019 SUBJECTIVE: The patient is developing a rough night with ileus and abdominal distention. No bowel movement, voiding well. PHYSICAL EXAMINATION: Vital Signs: Temperature is 98 degrees vitals are stable. HEENT: Within normal limits. Neck: Supple. No lymphadenopathy. Chest: Bilateral air entry. Heart: Sounds are regular. Abdomen: Belly is soft, distended. INVESTIGATIONS: None reported. ASSESSMENT AND PLAN: Day 2 radical nephrectomy, voiding well, incentive spirometry, out of the bed. KUB showed ileus. Increase the ambulation. Continue present treatment. Discussed with Dr. Toledo. We will get the full pathology report sometime next week. LEVEL OF DOCUMENTATION: 25 minutes. cc: Quincy Winters MD
[2019-07-25] MEDS: OXY IR PO PRN ×5 (03:35→22:27)
[2019-07-25] MEDS: NEXIUM PO SCH ×2 (05:40→07:04)
[2019-07-25] MEDS: NS 1,000 ML IV SCH ×2 (05:42→05:46)
[2019-07-25 07:03] LABS: BASO# 0.01 X1000 (0.0-0.2); BASO% 0.1 % (0.0-0.8); EOS# 0.23 X1000 (0.0-0.7); EOS% 2.7 % (0.0-10.0); HEMATOCRIT 35.9 % (42.0-52.0); HEMOGLOBIN 11.9 g/dL (14.0-18.0); IMM GRAN# 0.02 X1000 (0.0-0.04); IMM GRAN% 0.2 % (0.0-0.5); LYMPH# 0.86 X1000 (1.2-3.4); LYMPH% 10.1 % (20.5-51.1); MCHC 33.1 g/dL (33-37); MCV 90.4 FL (81-99); MONO# 1.06 X1000 (0.11-0.59); MONO% 12.4 % (1.7-9.3); MPV 9.7 FL (7.4-10.4); NEUT# 6.36 X1000 (1.4-6.5); NEUT% 74.5 % (42.2-75.2); PLT 203 X1000 (130-400); RBC 3.97 XMIL (4.7-6.1); RDW 13.5 % (11.5-14.5); WBC 8.54 X1000 (4.8-10.8)
[2019-07-25 07:20] LABS: AGAP 11; BUN 6 mg/dL (8-22); CALCIUM 8.1 mg/dL (8.8-10.2); CHLORIDE 107 mmol/L (98-107); COSMO 279; ESTIMATED GFR > 60; GLUCOSE 100 mg/dL (70-104); POTASSIUM 3.4 mmol/L (3.5-5.1); SODIUM 141 mmol/L (136-145); TCO2 23 mmol/L (25-35)
[2019-07-25] MEDS: COREG PO SCH ×2 (09:05→21:37)
[2019-07-25] MEDS: KLOR-CON PO SCH (09:06)
[2019-07-25] MEDS: ADALAT CC PO SCH (09:06)
[2019-07-25] MEDS: PERIDEX MT SCH ×2 (09:07→21:37)
[2019-07-25] MEDS ORDERED: MIRALAX PO ONE (09:52)
[2019-07-25] MEDS ORDERED: KLOR-CON PO ONE (13:20)
--- NOTE | 2019-07-25 16:19 | PROGRESS NOTE ---
DATE: 07/25/2019 SUBJECTIVE: The patient continues to have ileus and nausea. No other complaints. He is not passing the gas. PHYSICAL EXAMINATION: Vital Signs: Temperature is 97 degrees. Vitals are stable. HEENT: Within normal limits. Neck: Supple. No lymphadenopathy. Chest: Bilateral air entry. Heart: Sounds are regular. Abdomen: Belly is soft and distended. No obvious neurological deficits. INVESTIGATIONS: CBC: White cell count 8.5, hematocrit 35, and platelets 203,000. Sodium 140, potassium 3.4, BUN 6, and creatinine 1.0. KUB with moderate ileus. ASSESSMENT AND PLAN: 1. Postoperative day 3 complicated by mild ileus. Plan is decrease intravenous fluids. MiraLAX. 2. Hypokalemia. Replace the potassium. 3. Hypertension is stable. Continue with thrombotic stockings. Incentive spirometry. If he continues to get better, we will discharge in the morning. LEVEL OF DOCUMENTATION: 25 minutes. cc: Quincy Winters MD
[2019-07-26] MEDS: OXY IR PO PRN ×2 (06:38→11:38)
[2019-07-26] MEDS: NEXIUM PO SCH (06:39)
[2019-07-26 09:35] VITALS: BP 156/78
[2019-07-26] MEDS: COREG PO SCH (10:19)
[2019-07-26] MEDS: ADALAT CC PO SCH (10:20)
[2019-07-26] MEDS: KLOR-CON PO SCH (10:20)
[2019-07-26] MEDS: PERIDEX MT SCH (10:20)
--- NOTE | 2019-07-26 15:24 | DISCHARGE SUMMARY ---
ADMISSION DATE: 07/21/2019 DISCHARGE DATE: 07/26/2019 DISCHARGING DIAGNOSIS: Large right renal mass status post radical nephrectomy. Waiting for staging. SECONDARY DIAGNOSES: 1. Metabolic syndrome. 2. Acid reflux disease. 3. Hyperlipidemia. 4. Hypertension. 5. Hyperuricemia. 6. Elevated PSA 4.7. 7. Chronic back pain due to L4-L5 disk disease with right neuroforaminal stenosis. 8. Hypokalemia. CONSULT: Dr. Masoud Loo. PROCEDURES: 1. Radical right nephrectomy. 2. Removed adrenal gland. BRIEF HISTORY: Please see the H P that was done on 07/21/2019. In brief, he is a 63-year-old pleasant white male who recently had a back pain evaluation, found a large right renal mass arising from lower pole seen by Dr. Loo and Wil. Basically admitted to the hospital for radical nephrectomy. Preop workup was negative. The patient had a successful right radical nephrectomy robotically by Dr. Loo, removed adrenal lipoma. Postoperative course was uneventful except hypokalemia and ileus and no other untoward complications noted. The patient was discharged home in a stable condition. LABS: CBC: White cell count 8.5, hematocrit 35.9, platelets 203,000. Sodium 140, potassium 3.4, chloride 107, BUN 11, creatinine 0.6, glucose 100. DISCHARGE INSTRUCTIONS ARE FOLLOWS: Nexium 40 mg daily. Zebeta 10 daily, nifedipine 30 daily, potassium 20 mEq daily, Lasix 40 daily as needed, Ultracet 1 tablet q. 6 for p.r.n. pain, Coreg 25 mg p.o. b.i.d. and follow up with Dr. Loo on as well as Dr. De La Torre and follow up in my office in 2 weeks. cc: MD Conrado Foss MD William E. Hughes, MD
== END 2019-07-26 12:00 | disposition home or self-care (01) | DRG 657 ==
LOC: 4N → OR 15:30 → OBSVTOIN 15:41 → EDSTATUS 07-22 10:30
PROVIDERS: ADMIT Internal Medicine; ATTEND Internal Medicine

== ENCOUNTER 2019-07-31 19:43 | Inpatient (IN) ==
--- NOTE | 2019-07-31 22:03 | Diag Imaging Result Doc PS360 ---
EXAM: CT ABD/PELVIS W/IV CONT ONLY 07/31/2019 HISTORY: wound dehiscence post op TECHNIQUE: This exam was performed using automated exposure control, adjustment of mA or kV according to patient size, and/or use of iterative reconstruction technique. COMMENT: The current study is compared with the previous examination of 07/10/2019. There is a nodule posteriorly in the right lower lobe which has not changed significantly since the previous study. There is a fluid collection medial and posterior to the right hepatic lobe. The liver is stable in appearance. The spleen is normal in appearance. The fluid collection on the right was not present on the previous study. This partially obscures the adrenal gland. The left adrenal gland is stable in appearance. The pancreas is unremarkable. There has been previous cholecystectomy. There is some fluid in the stomach without significant dilatation. The small bowel and colon are not distended. The aorta is normal in caliber. There is no evidence of significant adenopathy. The appendix is normal in appearance. There is stranding in the fat surrounding the cecum and appendix this was not the case at the time the previous study. There has been right nephrectomy since the previous study. There are apparent cortical cysts in the left kidney. There are air bubbles in the subcutaneous fat and there is apparent ventral dehiscence presumably in an incision. There is a small bowel loop protruding into the defect. Pelvis: There is no evidence of free fluid. The there is a bone island in the proximal left femur. There are degenerative disc changes particularly at L5-S1. No acute bony abnormalities are present. IMPRESSION: Postsurgical changes of right nephrectomy with small hematoma. Anterior abdominal incision dehiscence as described. Electronically signed by Twin Rodriguez 07/31/2019 10:01 PM
[2019-07-31 22:29] LABS: BASO# 0.04 X1000 (0.0-0.2); BASO% 0.4 % (0.0-0.8); EOS# 0.58 X1000 (0.0-0.7); HEMATOCRIT 38.8 % (42.0-52.0); HEMOGLOBIN 12.7 g/dL (14.0-18.0); IMM GRAN# 0.04 X1000 (0.0-0.04); IMM GRAN% 0.4 % (0.0-0.5); LYMPH# 1.33 X1000 (1.2-3.4); LYMPH% 13.9 % (20.5-51.1); MCH 29.3 PG (27-31); MCHC 32.7 g/dL (33-37); MCV 89.4 FL (81-99); MONO# 1.01 X1000 (0.11-0.59); MONO% 10.5 % (1.7-9.3); MPV 9.7 FL (7.4-10.4); NEUT% 68.8 % (42.2-75.2); PLT 355 X1000 (130-400); RBC 4.34 XMIL (4.7-6.1); RDW 13.1 % (11.5-14.5)
[2019-07-31] MEDS ORDERED: ZOSYN 4.5 GM in NS 100 ML IV ONE (22:40)
[2019-07-31] MEDS ORDERED: NS 1,000 ML IV ONE (22:44)
[2019-07-31 22:55] LABS: CALCIUM 8.5 mg/dL (8.8-10.2); CREATININE 1.3 mg/dL (0.7-1.2); POTASSIUM 3.7 mmol/L (3.5-5.1)
--- NOTE | 2019-07-31 23:44 | PROVIDER DOCUMENTATION ---
This chart was entered by Han Smith Scribe, acting as scribe for Rut Ortez MD. HPI-Rash/Wound/ReCheck - General Chief Complaint: Post Op Complaint Stated Complaint: POST-OP COMPLAINT Time Seen by Provider: 07/31/19 21:00 Source: patient, family Allergies/Adverse Reactions: Allergies Allergy/AdvReac Type Severity Reaction Status Date / Time No Known Allergies Allergy Verified 07/31/19 20:06 Home Medications: Home Medication List Medication Instructions Recorded Confirmed Last Taken Type Esomeprazole Magnesium 40 mg PO DAILY 07/13/19 07/31/19 07/21/19 09:00 History 40 mg Ezetimibe 10 mg PO DAILY 07/13/19 07/31/19 07/13/19 History Nifedipine [Nifedipine ER] 30 mg PO DAILY 07/13/19 07/31/19 07/21/19 09:00 History 30 mg Potassium Chloride [Klor-Con M20] 20 mg PO DAILY 07/13/19 07/31/19 07/21/19 09:00 History 20 meq Tramadol/APAP [Ultracet 1 ea PO Q6H PRN PRN #90 tab 07/16/19 07/31/19 07/21/19 11:30 Rx 37.5MG/325Mg] 1 Carvedilol [Coreg] 50 mg PO BID 07/21/19 07/31/19 07/21/19 09:00 History 50 mg Furosemide [Lasix] 40 mg PO DAILY 07/21/19 07/31/19 07/21/19 09:00 History 40 mg - History of Present Illness-Dermatology Nature of Presenting Problem: Pt is a 63 yom who presents to the ED with a CC of post operation complaint. Pt reports he had his right kidney removed nine days ago. Pt reports he had his autumn taken out earlier today. Pt reports while at home he sneezed and states his surgical site opened up. Pt reports this occurred at approximately 1830. Pt reports he has noticed draining from the surgical site recently, no fever, no abdominal pain. There was no draining noted on examination. Location: reports: other (Abdomen) Quality: reports: other (Surgical site opening) Severity: reports: mild Onset/Duration: reports: 1-3 hours ago Timing: reports: still present Context/Associated Symptoms: reports: other Identifiable cause?: Yes Locality of Occurance: Home Similar Symptoms Previously?: Yes Recently seen or treated by another doctor?: Yes - Recheck Treated days ago.: 1 Previous Treatment: laceration repair (Surgical) Symptoms since procedure:: reports: other Review of Systems - Adult - REVIEW OF SYSTEMS - ADULT Constitutional: reports: see HPI Eyes: reports: no symptoms reported Ears, Nose, Mouth & Throat: reports: no symptoms reported Cardiovascular: reports: no symptoms reported Respiratory: reports: no symptoms reported Gastrointestinal: reports: see HPI Genitourinary: reports: no symptoms reported Musculoskeletal: reports: no symptoms reported Integumentary: reports: see HPI Neurological: reports: no symptoms reported Psychiatric: reports: no symptoms reported Endocrine: reports: no symptoms reported Hematologic/Lymphatic: reports: no symptoms reported Allergic/Immunologic: reports: no symptoms reported All Other Systems: Reviewed and Negative Past History - Adult - PAST MEDICAL HISTORY-ADULT Review of Records: reports: Old Records Reviewed, Nursing Assessment Review, Medications Reviewed, Social history reviewed & non-contributory. Major Childhood Illnesses: reports: denies history Cardiovascular: reports: denies history Respiratory: reports: denies history Gastrointestinal: reports: denies history Obstetrical/Gynecological: reports: denies history Genitourinary: reports: cancer (Kidney) Musculoskeletal: reports: denies history Neurological: reports: denies history Endocrine/Immune: reports: denies history Other Conditions: reports: denies history - PRIOR SURGERIES/PROCEDURES Surgical/Procedure History: reports: other (Right kidney removal) - IMMUNIZATION STATUS Childhood Immunizations: See Nurse Assessment Flu Vaccine: See Nurse Assessment - FAMILY HISTORY Family History: reviewed, not pertinent - SOCIAL HISTORY Smoking: denies, non-smoker Substance Use: none/never, denies Alcohol Use Frequency: never Physical Exam-General - PHYSICAL EXAM-ADULT Initial Vital Signs Reviewed: Yes - CONSTITUTIONAL General Appearance: alert, mild distress, obese - EYES Eyes: PERRL/EOMI, pink conjunctivae - HEAD, EARS, NOSE, MOUTH & THROAT HENMT: normocephalic/atraumatic, moist mucous membranes - NECK Neck: non-tender, full range of motion - RESPIRATORY Respiratory: chest non-tender, lungs clear, normal breath sounds - CARDIOVASCULAR Cardiovascular: normal peripheral pulses, regular rate, rhythm, no edema - GASTROINTESTINAL (ABDOMEN) Abdominal Exam: tenderness (From surgical site), other (4 cm anterior abdominal incisional dehicscense with 1 inch deep void in the superior aspect of the wound with visible adipose and ? bowel) - MUSCULOSKELETAL Extremity: normal range of motion, non-tender - SKIN Integumentary: normal color, warm/dry, other - NEUROLOGIC Neurologic: grossly normal, no motor/sensory deficits - PSYCHIATRIC Psych/Mental Status: normal mood/affect, normal thought content, normal thought process, oriented x 3 Progress - PLAN OF CARE/RESULTS Progress/Plan/Lab Results: Vital Signs - 8 hr 07/31/19 19:50 Temperature 98.1 F Pulse Rate 60 Respiratory Rate 17 Blood Pressure 151/80 O2 Sat by Pulse Oximetry 97 Laboratory Results - last 24 hr 07/31/19 07/31/19 21:29 21:29 WBC 9.60 RBC 4.34 L Hgb 12.7 L Hct 38.8 L MCV 89.4 MCH 29.3 MCHC 32.7 L RDW Std Deviation 13.1 Plt Count 355 MPV 9.7 Immature Gran % (Auto) 0.4 Neut % (Auto) 68.8 Lymph % (Auto) 13.9 L Stark % (Auto) 10.5 H Eos % (Auto) 6.0 Baso % (Auto) 0.4 Immature Gran # (Auto) 0.04 Neut # (Auto) 6.60 H Lymph # (Auto) 1.33 Stark # (Auto) 1.01 H Eos # (Auto) 0.58 Baso # (Auto) 0.04 Sodium 139 Potassium 3.7 Chloride 102 Carbon Dioxide 26 Anion Gap 11 BUN 13 Creatinine 1.3 H Estimated GFR/1.73 m2 56 BUN/Creatinine Ratio 10 Glucose 115 H Calculated Osmolality 279 Calcium 8.5 L Orders Category Date Time Status IV Insertion ORDERED Care 07/31/19 21:[address] ABD/PELVIS W/IV CONT ONLY [CT] Stat Exams 07/31/19 21:11 Completed BASIC METABOLIC PANEL [CHEM] Stat Lab 07/31/19 21:29 Completed BLOOD CULTURE [BLDCUL] Stat Lab 07/31/19 23:18 Results CBC WITH DIFF [HEME] Stat Lab 07/31/19 21:29 Completed 0.9% Sodium Chloride Inj [Ns] 1,000 ml Med 07/31/19 22:44 Active IV 999 mls/hr Piperacillin/Tazobactam [Zosyn] 4.5 gm Med 07/31/19 22:40 Discontinued 0.9% Sodium Chloride Inj [Ns] 100 ml IV NOW wound dehiscence with ? visible bowel will further evaluate with CT A/P Result Diagrams: 07/31/19 21:29 07/31/19 21:29 - REASSESSMENT Reassessment #1 Status: improving (feeling well, CT with concern for defect through fascia and protrusion of bowel through defect. Discussed case wtih Dr. Morillo, urologist field installation technician, who will come to see pt in the ED and request pt be covered with zosyn.) Reassessment #2 Status: unchanged (Evaluted by in the ED by Urology and plan to take pt to the OR.) - CT/MRI 1 CT Study: Abdomen, Pelvis Impression: See EMR Report ( EXAM: CT ABD/PELVIS W/IV CONT ONLY 07/31/2019 HISTORY: wound dehiscence post op TECHNIQUE: This exam was performed using automated exposure control, adjustment of mA or kV according to patient size, and/or use of iterative reconstruction technique. COMMENT: The current study is compared with the previous examination of 07/10/2019. There is a nodule posteriorly in the right lower lobe which has not changed significantly since the previous study. There is a fluid collection medial and posterior to the right hepatic lobe. The liver is stable in appearance. The spleen is normal in appearance. The fluid collection on the right was not present on the previous st udy. This partially obscures the adrenal gland. The left adrenal gland is stable in appearance. The pancreas is unremarkable. There has been previous cholecystectomy. There is some fluid in the stomach without significant dilatation. The small bowel and colon are not distended. The aorta is normal in caliber. There is no evidence of significant adenopathy. The appendix is normal in appearance. There is stranding in the fat surrounding the cecum and appendix this was not the case at the time the previous study. There has been right nephrectomy since the previous study. There are apparent cortical cysts in the left kidney. There are air bubbles in the subcutaneous fat and there is apparent ventral dehiscence presumably in an incision. There is a small bowel loop protruding into the defect. Pelvis: There is no evidence of free fluid. The there is a bone island in the proximal left femur. There are degenerative disc changes particularly at L5-S1. No acute bony abnormalities are present. IMPRESSION: Postsurgical changes of right nephrectomy with small hematoma. Anterior abdominal incision dehiscence as described. Electronically signed by Twin Rodriguez 07/31/2019 10:01 PM 07/31/192200 Interpreting Physician: Twin Rodriguez MD Dictated Date/Time: 07/31/197 cc: Rut Ortez MD; Guzman Loo MD) Departure - Departure Date of Disposition Decision: 07/31/19 Time of Disposition Decision: 23:44 DIAGNOSIS: Wound dehiscence, Evisceration of bowel Disposition: ADMITTED INPATIENT 09 Certified Medical Emergency: Emergent Condition: Serious Additional Instructions: ED Follow Up Instructions: You have been treated by a care provider in the Emergency Department. These instructions are being provided to you so you can have an understanding of how to care for yourself upon discharge. Upon discharge from the Emergency Department, you are responsible for making arrangements for follow-up care by a physician of your choice. Take all prescribed medications as directed. Return to the Emergency Department immediately for any new or worsening symptoms. You may call the Physician Referral phone number at [phone] to obtain a list of Physicians who are taking new patients. - Critical Care Note This patient required my direct & personal management of CC.: No Attestation - Physician/ PARVIN Attestation Patient care was provided by Advanced Practice Provider:: No The physician spent face to face time with patient:: Yes Advanced Practice Provider documentation review:: Supervising physician onsite and consulted in the evaluation and care of this patient. The physician did have a face to face encounter with the patient. This chart was documented by the indicated scribe, (Han Smith, Yonyibrenny) and accurately reflects the services I performed and decisions made by me, Rut Ortez MD, as attested by the provider's signature.
[2019-08-01] MEDS ORDERED: DIPRIVAN 1% ONE (00:21)
[2019-08-01] MEDS ORDERED: QUELICIN (DOSE) ONE (00:24)
[2019-08-01] MEDS ORDERED: XYLOCAINE-MPF 2% ONE (00:24)
[2019-08-01] MEDS ORDERED: PEPCID ONE (00:39)
[2019-08-01] MEDS ORDERED: REGLAN ONE (00:39)
--- NOTE | 2019-08-01 00:43 | CONSULTATION ---
DATE OF CONSULTATION: 07/31/2019 REQUESTING PHYSICIAN: Dr. Ortez in the Emergency Department. REASON FOR CONSULTATION: Wound dehiscence. HISTORY OF PRESENT ILLNESS: A 63-year-old male who underwent right robotic-assisted laparoscopic radical nephrectomy on 07/22/[address] Guzman Loo. He did well and was seen in clinic today, at which point his autumn were removed. Steri-Strips were applied over the incision. He reports sneezing or coughing once, which prompted his incision to open. He reports that prior to this he has had drainage for several days that was reddish in appearance. He denied fevers, chills, significant incisional pain. CT scan was obtained in the emergency room, which revealed dehiscent fascia with a loop of bowel protruding into the fascial defect. Urology was consulted. He denies voiding difficulties. Again, he denies significant incisional pain. No fevers, chills, nausea or vomiting. PAST MEDICAL HISTORY: Renal cell carcinoma, hypertension, hyperlipidemia, BPH, GERD, metabolic syndrome, spinal stenosis. PAST SURGICAL HISTORY: Cholecystectomy, right robotic-assisted laparoscopic radical nephrectomy. ALLERGIES: No known drug allergies. MEDICATIONS: Coreg, Lasix, potassium chloride, nifedipine, Zetia, Nexium, Ultram. FAMILY HISTORY: Negative for malignancies. SOCIAL HISTORY: Denies tobacco, alcohol or illicit drug use. REVIEW OF SYSTEMS: Reviewed and 12 systems negative, except for HPI. PHYSICAL EXAMINATION: Vital signs: Temperature 98.1 degrees, Pulse 60, blood pressure 151/80. General: No acute distress. Pleasant male. HEENT: Normocephalic, atraumatic. Cardiovascular: Regular rate and rhythm. Pulmonary: Bilateral breath sounds. Abdomen: Protuberant, nontender to palpation. There is 6 cm fascial defect with mesenteric fat obvious protruding out. No evidence of purulence noted. No evidence of necrosis of tissue seen. Back: No CVA tenderness. Genitourinary: Bladder is nontender to palpation. Normal external male genitalia. Lymphatic: No groin lymphadenopathy. Neurologic: Alert and oriented x3. Psychiatric: Appropriate mood and affect. PERTINENT LABORATORY DATA: White cell count is 10,000, hematocrit 39. Creatinine is 1.3. IMAGES: CT abdomen and pelvis per HPI. ASSESSMENT AND PLAN: A 63-year-old male status post recent nephrectomy who has fascial dehiscence with evisceration. I have discussed with the patient that, given obvious evisceration and visible mesentery and bowel, he would benefit from exploratory laparotomy and primary closure. We discussed the risks of the procedure, including, but not limited to, bleeding, infection, injury to the bowel, injury to adjacent structures, inability to achieve good primary closure, and repeat dehiscences as well as need for additional intervention. He was understanding and wants to proceed. PLAN: To operating room now for exploratory laparotomy and wound closure. cc: Ronald Cervantes MD
[2019-08-01] MEDS ORDERED: DECADRON ONE (00:45)
[2019-08-01] MEDS ORDERED: ZOFRAN ONE (00:45)
--- NOTE | 2019-08-01 01:04 | HISTORY AND PHYSICAL ---
PRIMARY CARE PHYSICIAN: Angelina Winters MD CHIEF COMPLAINT: Wound opening up. HISTORY OF PRESENTING ILLNESS: A 63-year-old male with a history of hypertension, hyperlipidemia, GERD and chronic low back pain, who underwent right radical nephrectomy several days ago. He presents to the emergency department with complaint that the wound is opening up. He was evaluated in the ED. It seems that some of the bowel was also eviscerating. His case was discussed with Urology, who recommended admission for further management. The OR team was called and the patient will go to OR shortly. At the time of my examination, the patient denied any headache, fever, chills, chest pain, shortness of breath or any weight changes, but just complained of right flank region pain. PAST MEDICAL HISTORY: Includes hypertension, hyperlipidemia, GERD, chronic low back pain. PAST SURGICAL HISTORY: Cholecystectomy, right radical nephrectomy. ALLERGIES: No known drug allergies. CURRENT MEDICATIONS: Glucotrol 50 mg p.o. b.i.d., Nexium 40 mg p.o. daily, Lasix 40 mg p.o. daily, nifedipine 30 mg p.o. daily. SOCIAL HISTORY: No history of smoking, alcohol or illicit drug use. FAMILY HISTORY: No history of coronary disease. REVIEW OF SYSTEMS: Fourteen-point review of systems is as in HPI. Other systems negative. PHYSICAL EXAMINATION: GENERAL: Cooperative, friendly male. He is resting comfortably now. VITAL SIGNS: Temperature 98.1 degrees, pulse 60, respirations 17, blood pressure 151/80. HEENT: Atraumatic, normocephalic. Extraocular movements intact. PERRLA. NECK: Supple. CHEST: Clear to auscultation. CARDIOVASCULAR: Regular rate and rhythm. ABDOMEN: Soft. Some mild tenderness around the wound. It seems to be opening, and the dressing is dry and intact. GENITOURINARY: No bladder distention. SKIN: Warm. LABORATORY DATA: WBCs 9.60, hemoglobin 12.7, hematocrit 38.8, platelets 355,000. Sodium 139, potassium 3.7, chloride 102, CO2 is 26, BUN is 13, creatinine is 1.3, glucose 115. DIAGNOSTIC DATA: CT shows anterior abdominal incision dehiscence. ASSESSMENT: A 63-year-old male with a history of hypertension, hyperlipidemia, gastroesophageal reflux disease and chronic low back pain, who underwent right radical nephrectomy. The patient presented to the emergency department with complaint of wound opening up. He was evaluated. It seems that there was wound dehiscence and some of the bowel was noted eviscerating from it. Due to his presenting symptoms, he will require admission for further management. 1. Wound dehiscence with bowel evisceration. 2. Status post right nephrectomy. 3. Hypertension. 4. Gastroesophageal reflux disease. 5. Chronic low back pain. PLAN: 1. We will admit the patient to the medical/surgical floor. 2. Urology was already consulted and the patient will go to OR. 3. We will give the patient adequate pain control. 4. We will hold home medications for now and keep the patient NPO. Continue with gentle hydration and start him on empiric antibiotics. 5. We will put the patient on DVT prophylaxis with SCDs. 6. We will continue to follow and reassess, and make further recommendations based on the patient's clinical course. cc: Elton Crockett MD MTDD
[2019-08-01] MEDS ORDERED: TORADOL ONE (01:18)
[2019-08-01] MEDS ORDERED: FENTANYL ONE (01:30)
[2019-08-01] MEDS ORDERED: MORPHINE ONE (02:00)
[2019-08-01] MEDS ORDERED: PERCOCET-10 ONE (02:10)
[2019-08-01] MEDS ORDERED: ZOFRAN IV PRN (02:34)
[2019-08-01] MEDS ORDERED: MORPHINE IV PRN (02:34)
[2019-08-01] MEDS: NS 1,000 ML IV SCH ×2 (02:51→14:42)
[2019-08-01] MEDS: MORPHINE IV PRN ×3 (04:29→22:33)
[2019-08-01] MEDS: ZOSYN 3.375 GM in NS 50 ML IV SCH ×4 (04:34→22:46)
--- NOTE | 2019-08-01 05:45 | OPERATIVE NOTE ---
PROCEDURE DATE: 08/01/2019 SURGEON: Dr. Ronald Cervantes. PREOPERATIVE DIAGNOSIS: History of recent abdominal surgery, wound dehiscence, evisceration of small bowel. POSTOPERATIVE DIAGNOSIS: History of recent abdominal surgery, wound dehiscence, evisceration of small bowel. PROCEDURE NAME: 1. Exploratory laparotomy. 2. Lysis of small bowel adhesions. 3. Primary wound closure. INDICATIONS: A 63-year-old male who underwent right robotic radical nephrectomy by Dr. Loo on 07/22/2019. He was doing well and was seen in clinic on 07/31/2019, at which time the autumn were removed. On the evening of 07/31/2019, he reports cough and sneezing with subsequent sensation of tear and a large gaping opening in his wound. He contacted me and I advised him to come to the emergency room. In the emergency room, I saw the patient and he had CT scan that showed fascial defect with a loop of small bowel protruding through the defect. On direct examination, the patient had mesenteric fat visible protruding from his incision. He was counseled on exploratory laparotomy. FINDINGS: The fascia was dehisced along the entire incision. There was quite a bit of inflammation. There were 2 loops of small bowel attached to the ventral abdominal wall which were taken down sharply. A #1 Maxon suture was used in a [id number] interrupted fashion to reapproximate the fascia. DESCRIPTION OF PROCEDURE: After obtaining informed consent, the patient was brought to the operating room. Perioperative antibiotics and general endotracheal anesthesia were administered. He was placed in supine position, prepped and draped in sterile fashion. I began by palpating the defect with a finger and we quickly realized that the entire fascia was dehisced as it just out. Loose sutures were removed. There was quite a bit of inflammation. I was able to see some of the fascial edge. In order to clear up 1 to 2 cm of good fascial edge, Metzenbaum scissors and Bovie electrocautery was used to meticulously dissect the fascia off the muscle. Also, he was noted to have a couple of loops of small bowel adhered to the ventral wall and took it down under direct vision with Metzenbaum scissors with sharp dissection. Eventually, we identified and isolated the edges for reapproximation. A #1 Maxon suture was then used in an interrupted [id number] fashion to close the fascia and the peritoneum. Prior to closure, a Roe drain was placed through one of the previous 8 mm trocar sites by making a small incision with Bovie electrocautery and introducing the drain with the assistance of the Tracy stat. Also prior to closure, his abdominal cavity was copiously irrigated with normal saline. After the fascial closure, the wound was irrigated as well. I then used interrupted 0 Vicryl sutures to reapproximate subcutaneous tissues loosely. This was followed by another irrigation and autumn were applied on the incision. He was awakened and taken to PACU for further recovery. ESTIMATED BLOOD LOSS: 30 mL. COMPLICATIONS: None. DISPOSITION: To PACU and subsequently the floor. The patient is admitted to Dr. Crockett service and I spoke with Dr. Crockett after the surgery and updated him on the patient. cc: MD Elton Blue MD
[2019-08-01] MEDS: PERCOCET-10 PO PRN ×3 (08:43→20:37)
[2019-08-01] MEDS: PERIDEX MT SCH ×2 (08:43→20:37)
--- NOTE | 2019-08-01 08:54 | PROGRESS NOTE ---
DATE: 08/01/2019 SUBJECTIVE: The patient says he is very sore where he had his surgery. He had a nephrectomy recently about 10 days ago or so and had wound dehiscence, had surgery a little after midnight this morning. The patient was admitted to Dr. Winters. OBJECTIVE: Vital Signs: Blood pressure 128/65, respirations 18, pulse 61, temperature 98.1 degrees Fahrenheit. HEENT: Normocephalic. EOMs intact. PERRLA. Throat clear. Lungs: Clear to auscultation and percussion without rhonchi, rales, or wheezes. Heart: Regular rate and rhythm without murmurs, gallops, friction rubs. Abdomen: Soft. Active bowel sounds. No organomegaly or tenderness. I did not look at the wound at this time. He is just back from surgery a few hours ago. LABORATORY DATA: White count done, actually I guess before surgery, was 9600. ASSESSMENT: Wound dehiscence after nephrectomy, now status post repair. PLAN: Continue to watch. We will follow. cc: MD Quincy Nieves Jr, MD
--- NOTE | 2019-08-01 15:39 | PROGRESS NOTE ---
DATE: 08/01/2019 SUBJECTIVE: Mr. Waldron reports decent night overnight. He reports incisional pain. He denies fevers or chills. OBJECTIVE: Vital Signs: T 98.5 degrees, P 60, BP 139/75. General: No acute distress. Abdomen: Appropriately tender. Nondistended. Molly are intact. No evidence of wound separation noted. Appropriate erythema around wound edges. PERTINENT LABORATORY DATA: None today. ASSESSMENT AND PLAN: A 63-year-old male with wound dehiscence and evisceration after recent left robotic nephrectomy, who underwent lysis of adhesions, exploratory laparotomy, and wound closure early this morning. He is doing better. He reports passing flatus and tolerating food. His drain had 80 mL overnight. We discussed that he needs to ambulate, and I will await for him to have a bowel movement. We will likely remove his drain tomorrow and, if he is doing well, he should be cleared for discharge. cc: MD Quincy Blue MD
[2019-08-02] MEDS: NS 1,000 ML IV SCH (03:52)
[2019-08-02] MEDS: PERCOCET-10 PO PRN ×4 (03:55→23:39)
[2019-08-02] MEDS: MORPHINE IV PRN ×3 (04:56→18:53)
[2019-08-02] MEDS: ZOSYN 3.375 GM in NS 50 ML IV SCH ×4 (05:00→22:48)
[2019-08-02 06:41] LABS: BASO# 0.04 X1000 (0.0-0.2); BASO% 0.4 % (0.0-0.8); EOS# 0.48 X1000 (0.0-0.7); EOS% 4.8 % (0.0-10.0); HEMATOCRIT 35.6 % (42.0-52.0); HEMOGLOBIN 11.5 g/dL (14.0-18.0); IMM GRAN# 0.03 X1000 (0.0-0.04); IMM GRAN% 0.3 % (0.0-0.5); LYMPH# 1.59 X1000 (1.2-3.4); LYMPH% 15.9 % (20.5-51.1); MCH 29.6 PG (27-31); MCHC 32.3 g/dL (33-37); MCV 91.5 FL (81-99); MONO# 0.99 X1000 (0.11-0.59); MONO% 9.9 % (1.7-9.3); MPV 9.5 FL (7.4-10.4); NEUT# 6.85 X1000 (1.4-6.5); NEUT% 68.7 % (42.2-75.2); PLT 280 X1000 (130-400); RBC 3.89 XMIL (4.7-6.1); RDW 13.1 % (11.5-14.5); WBC 9.98 X1000 (4.8-10.8)
[2019-08-02 06:58] LABS: AGAP 11; BUN 9 mg/dL (8-22); CHLORIDE 106 mmol/L (98-107); COSMO 280; CREATININE 1.1 mg/dL (0.7-1.2); ESTIMATED GFR > 60; GLUCOSE 105 mg/dL (70-104); POTASSIUM 3.7 mmol/L (3.5-5.1); SODIUM 141 mmol/L (136-145); TCO2 24 mmol/L (25-35)
[2019-08-02] MEDS: MIRALAX PO SCH (10:22)
[2019-08-02] MEDS: PERIDEX MT SCH ×2 (10:22→22:49)
--- NOTE | 2019-08-02 10:33 | PROGRESS NOTE ---
DATE: 08/02/2019 SUBJECTIVE: The patient says he is still hurting a good bit in his lower abdomen. He had a wound dehiscence, and that was repaired. He has not had a bowel movement yet. He has had urination. He had had a nephrectomy previously. He said he got up and walked a little bit yesterday, but it hurt a lot, and it is still hurting some now. OBJECTIVE: Vital Signs: Blood pressure is 149/76, respirations 16, pulse 54, temperature 97.9 degrees Fahrenheit. HEENT: Normocephalic. EOMs intact. PERRLA. Throat clear. Lungs: Clear to auscultation and percussion without rhonchi, rales, or wheezes. Heart: Regular rate and rhythm without murmurs, gallops, friction rubs. Abdomen: Soft with some tenderness in the right lower quadrant. Neurological: Intact grossly. ASSESSMENT: 1. Status post wound repair after dehiscence from previous surgery for nephrectomy. 2. Constipation. PLAN: Will try him on MiraLAX today, and see how he does. Will try to ambulate. cc: MD Quincy Nieves Jr, MD
--- NOTE | 2019-08-02 10:51 | Diag Imaging Result Doc PS360 ---
EXAM: FLAT/UPRIGHT ABD/1 VIEW CHEST 08/02/2019 HISTORY: abd pain TECHNIQUE: Flat and upright abdomen with PA chest COMMENT: There is some apparent diverticulosis in the sigmoid colon. There is a nonspecific colonic and small bowel gas pattern without evidence of obstruction. There is no evidence of organomegaly or mass. Compared to 07/24/2019 there has been no significant change. The appearance the chest has not changed significantly since 07/13/2019. IMPRESSION: The possibility of mild ileus cannot be excluded. Otherwise no evidence of acute disease. Electronically signed by Twin Rodriguez 08/02/2019 10:49 AM
[2019-08-03] MEDS: ZOSYN 3.375 GM in NS 50 ML IV SCH ×4 (04:30→23:45)
[2019-08-03] MEDS: PERCOCET-10 PO PRN ×3 (05:47→19:41)
[2019-08-03] MEDS: PERIDEX MT SCH ×3 (10:05→21:29)
[2019-08-03] MEDS ORDERED: ULTRACET 37.5MG/325MG PO PRN (21:31)
--- NOTE | 2019-08-03 21:58 | PROGRESS NOTE ---
DATE: 08/03/2019 SUBJECTIVE: Events noted over the weekend: Appreciated urology input and interval history was reviewed. Molly were intact. Blood cultures positive for Clostridium perfringens and the patient is doing better. PHYSICAL EXAMINATION: Vital signs: Temperature is 98 degrees pulse 58. Blood pressure is slightly running high. 99% on room air. HEENT: Within normal limits. Neck: Supple. Chest: Clear. Heart: Sounds are regular. Abdomen: Belly is soft, nontender. No obvious deficits. INVESTIGATIONS: On 08/02 is unremarkable. Blood cultures 1 positive for Clostridium perfringens with gram-positive rods. ASSESSMENT AND PLAN: 1. Continue on IV Zosyn. 2. Status post wound dehiscence. [place] are intact. 3. Hypertension. We will restart home medications. Advanced the diet. Out of the bed and if he is stable we will discharge in the morning on p.o. antibiotics. 4. 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 It is almost contained. Under the care of Dr. De La Torre. Continue to watch every 3 months. 5. Back pain on the right side and calf pain. We will address the issue down the line after he recovers from this surgery. LEVEL OF DOCUMENTATION: 25 minutes. cc: Quincy Winters MD
[2019-08-04] MEDS: MIRALAX PO SCH (02:11)
[2019-08-04] MEDS: PERCOCET-10 PO PRN ×2 (02:11→08:56)
[2019-08-04 04:14] VITALS: BP 160/77
[2019-08-04] MEDS: ZOSYN 3.375 GM in NS 50 ML IV SCH (05:53)
[2019-08-04] MEDS: PERIDEX MT SCH (08:55)
[2019-08-04] MEDS ORDERED: COREG PO SCH (09:00)
[2019-08-04] MEDS ORDERED: NEXIUM PO SCH (09:00)
--- NOTE | 2019-08-05 09:50 | DISCHARGE SUMMARY ---
ADMISSION DATE: 07/31/2019 DISCHARGE DATE: 08/04/2019 DISCHARGING DIAGNOSIS: Wound dehiscence followed by evisceration of the small bowel. SECONDARY DIAGNOSES: 1. Gram-positive rods bacteremia-Clostridium perfringens. 2. Right radical nephrectomy due to hypernephroma. 3. Angiomyolipoma of the right adrenal gland. 4. Metabolic syndrome. 5. Acid reflux disease. 6. Hyperlipidemia. 7. Hypertension. 8. Hyperuricemia. 9. Elevated PSA 4.7. 10. Chronic back pain due to L4-L5 disk disease with right neural foraminal stenosis. CONSULTS: Dr. Ronald Cervantes. PROCEDURES: Laparotomy, lysis of small bowel adhesions, primary wound closure. BRIEF HISTORY: Please see the H and P that was done by hospitalist on 08/01/2019. In brief, he is a 63-year-old white male recently discharged from the hospital after right radical nephrectomy by Dr. Loo for hypernephroma. Basically, went to his office as a followup, removed the molly on the right paramedian from the incision and also seen by Dr. De La Torre. He went home. He started having cough and sneeze and popped the wound and as a result, he came to the emergency room. In the ER, patient was found to have wound dehiscence with bowel evisceration. As a result, he has been admitted to the hospital. Urology on-call was consulted for Dr. Loo. The patient had lysis of adhesions and wound was closed. Molly were intact. Postoperative course was uneventful except mild ileus, which has resolved. He had a gram-positive renny bacteremia due to Clostridium for which he was given IV Zosyn. Rest of the hospital course was uneventful. LABS: CBC: White cell count 9.9, hematocrit 35, platelets 280,000. Sodium 140, potassium 3.7, chloride 106, BUN 9, creatinine 1.1. DISCHARGE INSTRUCTIONS: The patient was discharged home with the following instructions: 1. Nexium 40 daily, Zetia 10 daily, nifedipine 30 daily, potassium 20 mEq daily, Ultracet 1 tablet q.6 p.r.n. pain, Lasix 40 daily, Coreg 25 p.o. b.i.d., Augmentin 875 p.o. b.i.d.. 2. Follow up with Dr. Loo as well as Dr. De La Torre in my office. cc: MD Guzman Foss MD Naveen T. Lobo, MD Sergey S. Ananyev, MD
== END 2019-08-04 10:05 | disposition home or self-care (01) | DRG 908 ==
LOC: ED 19:43 → SUATTDRO 08-01 02:29 → 4N 08-01 02:29
PROVIDERS: ADMIT Internal Medicine; ATTEND Internal Medicine